=== PATIENT | female | born 1995 | race Caucasian/White ===

== ENCOUNTER 2017-05-04 11:38 | Observation (INO) | payer MEDICAID ==
[2017-05-04 11:47] VITALS: RESP 18; O2SAT 100
[2017-05-04] MEDS ORDERED: Sodium Chloride 0.9% 1,000 ML IV STA (12:05)
[2017-05-04 12:57] LABS: BASO # 0.1 K/uL (0.0-0.2); BASO % 0.4 % (0.0-2.0); EOS # 0.2 K/uL (0.0-0.7); EOS % 1.1 % (0.0-4.0); HEMATOCRIT 41.9 % (34.0-47.0); LYMPH # 1.3 K/uL (1.0-4.3); LYMPH % 8.1 % (20.0-40.0); MEAN CELL VOLUME 79.8 fl (81.0-99.0); MEAN CORPUSCULAR HEMOGLOBIN 27.6 pg (27.0-31.0); MEAN CORPUSCULAR HGB CONC 34.5 g/dL (33.0-37.0); MEAN PLATELET VOLUME 11.2 fl (7.2-11.7); MONO # 0.9 K/uL (0.0-0.8); MONO % 5.7 % (0.0-10.0); NEUT # 13.5 K/uL (1.8-7.0); NEUT % 84.7 % (50.0-75.0); PLATELET COUNT 208 K/uL (130-400); RED CELL DISTRIBUTION WIDTH 13.7 % (11.5-14.5); WHITE BLOOD COUNT 15.9 K/uL (4.8-10.8)
--- NOTE | 2017-05-04 12:57 | ED PDOC ---
HPI: Abdomen Time Seen by Provider: 05/04/17 11:59 Chief Complaint (Nursing): Abdominal Pain Chief Complaint (Provider): Abdominal Pain History Per: Patient History/Exam Limitations: no limitations Onset/Duration Of Symptoms: Days (x3) Current Symptoms Are (Timing): Still Present Additional Complaint(s): Susu Quiroz is a 21 year old female with previous medical history of asthma, who presents to the emergency department with a complaint of sharp, intermittent upper abdominal pain associated with nausea and vomiting ongoing for 3 days. Denied any fever, chills, constipation or diarrhea. Patient stated she has been evaluated twice at [facility] for gastritis and discharged with antacids at home, which had not improved her symptoms. Pt currently being treated for UTI. PMD: Lynda Clifton MD Past Medical History Reviewed: Historical Data, Nursing Documentation, Vital Signs Vital Signs: Last Vital Signs Temp 98.4 F 05/04/17 17:16 Pulse 59 L 05/04/17 17:16 Resp 18 05/04/17 17:16 BP 143/76 05/04/17 17:16 Pulse Ox 100 05/04/17 17:16 - Medical History PMH: Asthma (as a child) - Surgical History Surgical History: No Surg Hx - Family History Family History: States: Unknown Family Hx - Social History Current smoker - smoking cessation education provided: Yes Ex-Smoker (has not smoked in the last 12 months): No Alcohol: Occasional Drugs: Denies - Immunization History Hx Tetanus Toxoid Vaccination: Yes (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) Hx Influenza Vaccination: No Hx Pneumococcal Vaccination: No - Home Medications Home Medications: Ambulatory Orders Medication Instructions Recorded Famotidine [Pepcid] 20 mg PO BID #20 tab 04/29/17 Nitrofurantoin Macrocrystals 1 cap PO BID #14 cap 04/29/17 [Macrobid] Ondansetron ODT [Zofran ODT] 1 odt PO BID PRN #6 odt 04/29/17 Aluminum Hydroxide/Magnesium H 30 ml PO TID #180 ml 05/01/17 [Maalox 30 ml] Omeprazole 20 mg PO DAILY #30 ecc 05/01/17 Ciprofloxacin [Cipro] 250 mg PO BID #6 tab 05/04/17 Ondansetron [Zofran Odt] 4 mg PO Q8H PRN #15 odt 05/04/17 - Allergies Allergies/Adverse Reactions: Allergies Allergy/AdvReac Type Severity Reaction Status Date / Time No Known Allergies Allergy Verified 03/27/17 22:55 Review of Systems ROS Statement: Except As Marked, All Systems Reviewed And Found Negative Constitutional: Negative for: Fever, Chills Gastrointestinal: Positive for: Nausea, Vomiting, Abdominal Pain (upper). Negative for: Diarrhea, Constipation Physical Exam - Reviewed Nursing Documentation Reviewed: Yes Vital Signs Reviewed: Yes - Physical Exam Appears: Positive for: Well (but obese), Non-toxic, No Acute Distress Head Exam: Positive for: ATRAUMATIC, NORMAL INSPECTION, NORMOCEPHALIC Cardiovascular/Chest: Positive for: Regular Rate, Rhythm. Negative for: Chest Non Tender Respiratory: Positive for: Normal Breath Sounds, Accessory Muscle Use. Negative for: Decreased Breath Sounds, Respiratory Distress Gastrointestinal/Abdominal: Positive for: Soft, Tenderness (generalized but more on epigastric area). Negative for: Normal Exam, Mass, Guarding, Rebound Back: Positive for: Normal Inspection. Negative for: L CVA Tenderness, R CVA Tenderness Neurologic/Psych: Positive for: Alert, Oriented - Laboratory Results Result Diagrams: 05/04/17 12:30 05/04/17 12:30 - ECG O2 Sat by Pulse Oximetry: 100 (RA) Pulse Ox Interpretation: Normal Medical Decision Making Medical Decision Making: Initial Impression: Abdominal pain; gastritis; appendicitis Initial Plan: * CT ABD/pelvis with IV contrast * CMP * Urine * Urine dipstick * CBC * Zofran 4mg IV * Urinalysis * NS 1,000ml IV per 1,000mls/hr 05/01/17 --US ABD/pelvis FINDINGS: LIVER: Measures 17.2 cm in length. Mild increase echogenicity of the liver parenchyma. No mass. No intrahepatic bile duct dilatation. GALLBLADDER: Unremarkable. No gallstones. COMMON BILE DUCT: Measures 3.0 mm. No stones. No dilatation. PANCREAS: Unremarkable as visualized. No mass. No ductal dilatation. RIGHT KIDNEY: Measures 11.2 x 4.7 x 5.5 cm in length. Normal echogenicity. No calculus, mass, or hydronephrosis. AORTA: No aneurysmal dilatation. IVC: Unremarkable. OTHER FINDINGS: None . IMPRESSION: No evidence of gallstones or cholecystitis. Re- demonstration of mild hepatomegaly and mild hepatic steatosis. 1300 --Admit to hospital routine: ED OBSERVATION for abdominal pain. Any further documentation will be included within ED Obs section of chart. Scribe Attestation: Documented by Ly Dean, acting as a scribe for Elva Nieves MD. Provider Scribe Attestation: All medical record entries made by the Scribe were at my direction and personally dictated by me. I have reviewed the chart and agree that the record accurately reflects my personal performance of the history, physical exam, medical decision making, and the department course for this patient. I have also personally directed, reviewed, and agree with the discharge instructions and disposition. ED OBSERVATION Discharge: Yes Date of observation admission: 05/04/17 Time of observation admission: 13:00 - Observation admission statement Patient is being placed in observation because:: abdominal pain - Goals of Observation Goals of observation are:: Resolution of symptoms - Progress Note Progress Note: 05/04/17 16:00 Patient resting comfortably, pending CT results and reevaluation Disposition - Clinical Impression Clinical Impression: UTI (urinary tract infection) - Disposition Disposition: Routine/Home Disposition Time: 17:10 Condition: STABLE
[2017-05-04 13:10] LABS: ALB/GLOB RATIO 1.4 (1.0-2.1); ALKALINE PHOSPHATASE 101 U/L (38-126); ALT/SGPT 30 U/L (9-52); AST/SGOT 18 U/L (14-36); BILIRUBIN,TOTAL 0.9 mg/dl (0.2-1.3); BLOOD UREA NITROGEN 7 mg/dl (7-17); CALCIUM 9.5 mg/dL (8.4-10.2); CARBON DIOXIDE 24 mmol/L (22-30); CHLORIDE 102 mmol/L (98-107); GFR AFRICAN-AMERICAN > 60; GLUCOSE,RANDOM 152 mg/dL (65-105); POTASSIUM 3.7 MMOL/L (3.6-5.0); SODIUM 141 mmol/l (132-148); TOTAL PROTEIN 7.1 G/DL (6.3-8.2)
[2017-05-04 13:13] LABS: RBC URINE 39 /hpf (0-3); URINE BACTERIA OCC (<OCC); URINE BILIRUBIN NEGATIVE (NEGATIVE); URINE BLOOD MODERATE (NEGATIVE); URINE COLOR AMBER (YELLOW); URINE GLUCOSE (UA) NEG (Normal); URINE KETONE 80 mg/dL (NEGATIVE); URINE LEUKOCYTE ESTERASE NEG Leu/uL (Negative); URINE PROTEIN 30 mg/dL (NEGATIVE); URINE UROBILINOGEN 0.2-1.0 mg/dL (0.2-1.0); WBC URINE 2 /hpf (0-5)
[2017-05-04 13:32] LABS: EOSINOPHIL 1 % (0-7); NEUTROPHIL 88 % (42-75); REACTIVE LYMPHOCYTES 1 % (0-0); TOTAL CELLS COUNTED 100
[2017-05-04] MEDS ORDERED: Iohexol 300 100 ML IJ ONE (15:39)
[2017-05-04] MEDS ORDERED: Sodium Chloride 0.9% 50 ML IV ONE (15:39)
--- NOTE | 2017-05-04 16:58 | CT ---
PROCEDURE: CT Abdomen and Pelvis with contrast HISTORY: Gen abd pain, vomiting COMPARISON: None. TECHNIQUE: Following the intravenous administration of iodinated contrast material, a CT examination of the abdomen and pelvis performed from the domes of the diaphragms to the symphysis pubis with reformatted datasets provided not only axial but also sagittal and coronal planes. Oral contrast was not administered as per referring physician request. Contrast dose: Omnipaque 300, 99 cc Radiation dose: Total exam DLP = 1117.87 mGy-cm. This CT exam was performed using one or more of the following dose reduction techniques: Automated exposure control, adjustment of the mA and/or kV according to patient size, and/or use of iterative reconstruction technique. FINDINGS: LOWER THORAX: Unremarkable. LIVER: Mild diffuse fatty infiltration liver is appreciated. History mass seen throughout the liver or prominent intrahepatic biliary dilatation. GALLBLADDER AND BILE DUCTS: Unremarkable. PANCREAS: Unremarkable. No gross lesion or ductal dilatation. SPLEEN: Unremarkable. ADRENALS: Unremarkable. No mass. KIDNEYS AND URETERS: Unremarkable. No hydronephrosis. No solid mass. VASCULATURE: Unremarkable. No aortic aneurysm. BOWEL: The stomach is collapsed with limited retained fluid and air. Unremarkable. No obstruction. No gross mural thickening. Lack of oral contrast limits evaluation. APPENDIX: Normal appendix. PERITONEUM: Unremarkable. No free fluid. No free air. LYMPH NODES: A 2.1 x 1.7 cm enlarged lymph node is seen with other but smaller pericecal lymph nodes of uncertain origin. Clinically correlate further. BLADDER: Unremarkable. REPRODUCTIVE: Unremarkable. BONES: No acute fracture. OTHER FINDINGS: None. IMPRESSION: Nonacute appearing abdomen and pelvis CT examination. Mild diffuse fatty infiltration liver is identified. Nonspecific lymphadenopathy is present in the pericecal space including a 2.1 x 1.7 cm lymph node.
[2017-05-04 17:17] VITALS: BP 143/76; PULSE 59; TEMP 98.4
== END 2017-05-04 17:11 | disposition home or self-care (01) ==
LOC: H.ER 11:38 → H.EROBSV 13:00
PROVIDERS: ADMIT Emergency Medicine; ATTEND Emergency Medicine
DX: K29.70 Gastritis, unspecified, without bleeding (principal); F17.200 Nicotine dependence, unspecified, uncomplicated; J45.909 Unspecified asthma, uncomplicated; K76.0 Fatty (change of) liver, not elsewhere classified; R16.0 Hepatomegaly, not elsewhere classified; N39.0 Urinary tract infection, site not specified; Z79.899 Other long term (current) drug therapy
CPT/HCPCS: 74177; 80053; 81003; 81025; 85025; 99283; G0378; J2405; J7040; Q9967